=== PATIENT | female | born 1975 | race Caucasian/White ===

== ENCOUNTER 2020-01-24 19:03 | Emergency (ER) | payer OTHER ==
[2020-01-26 12:16] LABS: SARS-CoV-2 MS2 Positive; SARS-CoV-2 N Gene Negative; SARS-CoV-2 S Gene Negative; SARS-CoV-2 orf1ab Negative
== END 2020-01-24 19:37 | disposition home or self-care (01) ==
LOC: MADERS 19:03
DX: Z20.828 Contact with and (suspected) exposure to other viral communicable diseases (principal)
CPT/HCPCS: 87635; 99281; U0003

== ENCOUNTER 2020-05-31 13:58 | Emergency (ER) | payer OTHER ==
--- NOTE | 2020-05-31 14:40 | RAD ---
EXAM: Chest PA and lateral: HISTORY: Cough COMPARISON: None FINDINGS: Heart size:Within normal limits. Lungs:Clear of acute process. No confluent pneumonia, overt edema, pleural effusion, or other acute process. IMPRESSION: No significant acute intrathoracic disease.
[2020-06-01 15:45] LABS: SARS-CoV-2 MS2 Positive; SARS-CoV-2 N Gene Negative; SARS-CoV-2 S Gene Negative; SARS-CoV-2 by NAA Not Detected (NotDetected); SARS-CoV-2 orf1ab Negative
== END 2020-05-31 15:11 | disposition home or self-care (01) ==
LOC: MADERS 13:58
DX: H66.91 Otitis media, unspecified, right ear (principal); B34.9 Viral infection, unspecified; L85.8 Other specified epidermal thickening; F41.9 Anxiety disorder, unspecified; F32.9 Major depressive disorder, single episode, unspecified; F17.200 Nicotine dependence, unspecified, uncomplicated; Z79.899 Other long term (current) drug therapy
CPT/HCPCS: 71046; 87635; U0003

== ENCOUNTER 2020-07-02 12:10 | Emergency (ER) | payer OTHER ==
[2020-07-02] MEDS ORDERED: Morphine 4 MG/ML VIAL ONE (13:37)
[2020-07-02] MEDS ORDERED: Ketorolac Tromethamine 30 MG/ML VIAL ONE (13:37)
[2020-07-02] MEDS ORDERED: Morphine 2 MG/ML SYRINGE ONE (13:37)
--- NOTE | 2020-07-02 13:45 | RAD ---
XR Shoulder Rt 3 View STANDARD: 07/02/2020 1:19 PM CLINICAL INDICATION: Shoulder pain for 3 days. COMPARISON: None. FINDINGS: Bones: No acute fracture. Glenohumeral joint: Normal alignment. AC joint: Normal alignment. Visualized lung: Clear. Soft tissues: Within normal limits. IMPRESSION: No acute osseous abnormality.
== END 2020-07-02 14:30 | disposition home or self-care (01) ==
LOC: MADERS 12:10
DX: S43.401A Unspecified sprain of right shoulder joint, initial encounter (principal); I10 Essential (primary) hypertension; J44.9 Chronic obstructive pulmonary disease, unspecified; F17.210 Nicotine dependence, cigarettes, uncomplicated; Z79.899 Other long term (current) drug therapy; X58.XXXA Exposure to other specified factors, initial encounter
CPT/HCPCS: 96372; J1885; J2270

== ENCOUNTER 2020-11-08 21:16 | Emergency (ER) | payer OTHER ==
[2020-11-08] MEDS ORDERED: HYDROcodone/Acetaminophen 5/325 mg Tablet ONE (22:49)
[2020-11-08] MEDS ORDERED: Azithromycin 500 MG VIAL ONE (22:49)
[2020-11-08] MEDS ORDERED: Dexamethasone 4 MG TAB ONE (22:50)
[2020-11-08] MEDS ORDERED: Azithromycin 250 MG TAB ONE (22:50)
[2020-11-08] MEDS ORDERED: Albuterol 200 PUFF (6.7GM INHALER) ONE (22:57)
== END 2020-11-08 23:01 | disposition home or self-care (01) ==
LOC: MADERS 21:16
DX: J18.9 Pneumonia, unspecified organism (principal); J45.909 Unspecified asthma, uncomplicated; F17.210 Nicotine dependence, cigarettes, uncomplicated; I10 Essential (primary) hypertension; Z85.42 Personal history of malignant neoplasm of other parts of uterus
CPT/HCPCS: 71045; J0456; J7620; J8540

== ENCOUNTER 2021-04-26 17:29 | Emergency (ER) | payer OTHER ==
[2021-04-26] MEDS ORDERED: Albuterol Sulfate 2.5 mg/0.5 ml Neb ONE (17:58)
[2021-04-26] MEDS ORDERED: predniSONE 20 MG TAB ONE (18:01)
== END 2021-04-26 18:50 | disposition home or self-care (01) ==
LOC: MADERS 17:29
DX: J45.901 Unspecified asthma with (acute) exacerbation (principal); J44.9 Chronic obstructive pulmonary disease, unspecified; I10 Essential (primary) hypertension; F17.210 Nicotine dependence, cigarettes, uncomplicated; Z85.42 Personal history of malignant neoplasm of other parts of uterus
CPT/HCPCS: 71046; 94640; J7512; J7611

== ENCOUNTER 2021-07-11 19:51 | Emergency (ER) | payer OTHER ==
[2021-07-12 15:42] LABS: SARS-CoV-2 PCR by NAA Not Detected (NotDetected)
== END 2021-07-11 22:22 | disposition home or self-care (01) ==
LOC: MADERS 19:51
DX: B34.9 Viral infection, unspecified (principal); Z20.822 Contact with and (suspected) exposure to COVID-19; I10 Essential (primary) hypertension; J44.9 Chronic obstructive pulmonary disease, unspecified; F17.210 Nicotine dependence, cigarettes, uncomplicated
CPT/HCPCS: 71046; 87081; 87430; 87804; U0003; U0005

== ENCOUNTER 2021-11-17 17:19 | Emergency (ER) | payer OTHER ==
[2021-11-17 20:32] LABS: Bilirubin Negative (Negative); Blood, Urine Small (Negative); Clarity Clear (Clear); Glucose, Urine (Dipstick) Negative (Negative); Ketone, Urine Negative (Negative); Leukocyte Negative (Negative); Nitrite Negative (Negative); Protein, Urine (Dipstick) Negative (Neg-Trace); Specific Gravity, Urine 1.015 (1.005-1.030); Urobilinogen 0.2 mg/dL (Less than 2)
[2021-11-17 20:33] LABS: RBC/HPF 0-3 HPF (0-3); WBC/HPF None Seen HPF (0-3)
[2021-11-17 20:34] LABS: Pregnancy Test - Urine (BHCG) Negative (Negative); Pregu Control Background? CLEAR/WHITE (CLR/WHITE); Pregu Control Bar Appear? YES (CONTROL BAR); Specific Gravity 1.015 (1.002-1.036)
[2021-11-17] MEDS ORDERED: Lactated Ringer's 1,000 ML ONE (20:45)
[2021-11-17] MEDS ORDERED: Ketorolac Tromethamine 30 MG/ML VIAL ONE (20:46)
[2021-11-17] MEDS ORDERED: diphenhydrAMINE 12.5 MG/5 ML UDCUP ONE ×2 (20:46→20:48)
[2021-11-17] MEDS ORDERED: Prochlorperazine 10 MG/2 ML VIAL ONE (20:48)
[2021-11-17] MEDS ORDERED: diphenhydrAMINE 50 MG/ML VIAL ONE (20:50)
[2021-11-18 15:09] LABS: SARS-CoV-2 PCR by NAA DETECTED (NotDetected)
== END 2021-11-17 21:59 | disposition home or self-care (01) ==
LOC: MADERS 17:19
DX: U07.1 COVID-19 (principal); G43.909 Migraine, unspecified, not intractable, without status migrainosus; M79.10 Myalgia, unspecified site; I10 Essential (primary) hypertension; J44.9 Chronic obstructive pulmonary disease, unspecified; F17.210 Nicotine dependence, cigarettes, uncomplicated; Z85.42 Personal history of malignant neoplasm of other parts of uterus; Z85.41 Personal history of malignant neoplasm of cervix uteri; Z79.899 Other long term (current) drug therapy
CPT/HCPCS: 71045; 81003; 81015; 81025; 87804; 96374; 96375; J0780; J1200; J1885; J7120; Q0163; U0003; U0005

== ENCOUNTER → 2024-08-03 | Emergency (ER) | payer OTHER ==
[~2024-08-03] MED LIST: Dexamethasone 10 MG/ML VIAL ONE; Ipratropium/Albuterol 3 ML NEB ONE; Ketorolac Tromethamine 30 MG (1 mL) VIAL ONE
== END ==
LOC: MADERS 19:02
DX: J10.1 Influenza due to other identified influenza virus with other respiratory manifestations (principal); I10 Essential (primary) hypertension; J44.9 Chronic obstructive pulmonary disease, unspecified; F17.210 Nicotine dependence, cigarettes, uncomplicated
CPT/HCPCS: 87081; 87428; 87430; 96372; J1100; J1885; J7620

== ENCOUNTER 2025-02-19 20:50 | Emergency (ER) | payer OTHER ==
[~2025-02-19 20:50] MED LIST changes: -Dexamethasone 10 MG/ML VIAL ONE; +Iopamidol 370 76% 100 ML VIAL ONE; -Ipratropium/Albuterol 3 ML NEB ONE; -Ketorolac Tromethamine 30 MG (1 mL) VIAL ONE
[2025-02-19] MEDS ORDERED: Ondansetron PF 4 MG/2 ML Vial ONE (21:38)
[2025-02-19] MEDS ORDERED: Ketorolac Tromethamine 30 MG (1 mL) VIAL ONE (21:38)
[2025-02-19 21:44] LABS: #Basophils 0.1 thou/uL (0.0-0.2); #Eosinophils 0.5 thou/uL (0.0-0.7); #Lymphocytes 2.7 thou/uL (1.20-3.40); #Monocytes 0.6 thou/uL (0.11-0.59); #Neutrophils 6.0 thou/uL (1.40-6.50); %Basophils 1.0 % (0.0-1.0); %Eosinophils 4.7 % (0.0-10.0); %Lymphocytes 27.5 % (21.0-51.0); %Monocytes 5.8 % (0.0-10.0); %Neutrophils 61.1 % (42.0-75.0); Hematocrit 41.6 % (36.0-47.0); Hemoglobin 13.3 g/dL (12.0-16.0); Mean Corpuscular Hemoglobin 27.6 pg (27.0-31.0); Mean Corpuscular Volume 86.4 fl (78.0-98.0); Platelet Count 349 10x3/uL (130-400); Red Blood Cell (RBC) Count 4.82 mill/uL (4.20-5.40); White Blood Cell (WBC) Count 9.7 10x3/uL (4.8-10.8)
[2025-02-19 22:05] LABS: ALT (SGPT) 12 U/L (Less than 34); AST (SGOT) 12 U/L (11-34); Albumin 3.8 g/dL (3.1-4.5); Alkaline Phosphatase 65 U/L (40-110); Anion Gap 15 mmol/L (10-20); BUN (Urea Nitrogen) 13 mg/dL (7.0-18.7); Bilirubin, Total 0.1 mg/dL (0.3-1.2); Calc. Creatinine Clearance 0 mL/min (70-130); Calcium 8.8 mg/dL (7.8-10.44); Carbon Dioxide 21 mmol/L (22-29); Chloride 112 mmol/L (98-107); Globulin 2.7 g/dL (2.4-3.5); Glucose 98 mg/dL (70-105); Lipase 35 U/L (8-78); Magnesium 1.9 mg/dL (1.6-2.6); Potassium 4.0 mmol/L (3.5-5.1); Sodium 144 mmol/L (136-145)
[2025-02-19 22:28] LABS: Bacteria/HPF Rare-Few HPF (None Seen); CAUTI Indications for Culture Pelvic or flank pain; Glucose, Urine (Dipstick) Negative (Negative); Leukocyte Negative (Negative); Protein, Urine (Dipstick) Negative (Neg-Trace); RBC/HPF 0-3 HPF (0-3); Specific Gravity, Urine 1.015 (1.005-1.030); WBC/HPF None Seen HPF (0-3)
[2025-02-19 22:29] LABS: Urine Culture Reflex No No
[2025-02-19] MEDS ORDERED: HYDROcodone/Acetaminophen 5/325 mg Tablet ONE (23:40)
== END 2025-02-19 23:46 | disposition home or self-care (01) ==
LOC: MADERS 20:50
DX: K52.9 Noninfective gastroenteritis and colitis, unspecified (principal); E86.0 Dehydration; I10 Essential (primary) hypertension; J44.9 Chronic obstructive pulmonary disease, unspecified; F17.210 Nicotine dependence, cigarettes, uncomplicated
CPT/HCPCS: 74177; 80053; 81001; 83690; 83735; 85025; 96361; 96374; 96375; J1885; J2405; J2919; J7030; Q9967